=== PATIENT | female | born 1995 | race Caucasian/White ===

== ENCOUNTER 2017-05-20 10:33 | Outpatient (CLI) | payer MEDICAID, OTHER ==
[~2017-05-20] VITALS: Ht 172.7 cm; Wt 78.6 kg
[2017-05-20 11:12] VITALS: BP 114/67; PULSE 64; RESP 17; Ht 172.7 cm; Wt 78.6 kg
--- NOTE | 2017-05-20 11:15 | RADRPT ---
PROCEDURE: US OB biophysical profile. CLINICAL INDICATION: Biophysical profile TECHNIQUE: Multiple sonographic images of the pelvis were obtained. The images were reviewed on a PACS workstation. COMPARISON: None FINDINGS: There is a single live intrauterine , in cephalic presentation. A normal heart rate i s identified measuring 131 beats per minute. The amniotic fluid index is within normal limits measur ing 9.4 cm. The placenta is located posteriorly grade 2-3. Biophysical profile: movement 2/2 tone 2/2. breathing 2/2 RAVINDRA 2/2 Total 02/12 IMPRESSION: 1. Biophysical profile score of 88. 2. Single live intrauterine in cephalic presentation with normal heart rate of 131 b pm. 3. Normal amniotic fluid index of 9.4 cm. RPTAT: AARR Physician Edda Date Time Electronically viewed and signed by Physician Edda on 05/20/2017 11:15 PORFIRIO/
--- NOTE | 2017-05-20 11:20 | RADRPT ---
PROCEDURE: US OB. CLINICAL INDICATION: Size and dates TECHNIQUE: Multiple sonographic images of the pelvis and gravid uterus were obtained. The images were reviewed on a PACS workstation. COMPARISON: No prior studies are available for comparison. FINDINGS: There is a single viable intrauterine gestation. Cardiac activity is present with 127 beats per min snehal. There is a vertex presentation. The placenta is posterior. There is no evidence for an abruption or placenta previa. Measurements were made in order to determine age. The results are as follows: BPD =9.3 cm HC =34.3 cm AC =34.3 cm FL =7.2 cm Estimated gestational age of approximately 38 weeks and 1 day based on ultrasound measurements. Clinical age: 41 weeks and 0 days. The estimated date of delivery is 06/02/17, based on ultrasound measurements. The EFW = 3376 g, 19.7%, based on LMP age. RPTAT: AA IMPRESSION: Single viable intrauterine gestation of approximately 38 weeks and 1 day based on ultrasound measur ements. .Andrew Yarbrough MD, MD Date Time Electronically viewed and signed by .Andrew Yarbrough MD, on 05/20/2017 11:20 .S/
--- NOTE | 2017-05-20 13:05 | PN ---
Triage Information Date/Time Reason for visit: Weeks of Gestation 41 weeks /Para Objective Vital Signs Date Time Temp Pulse Resp B/P Pulse Ox O2 Delivery O2 Flow Rate FiO2 05/20/17 11:12 98.1 64 17 114/67 Heart Rate Comments reactive Contractions: None Results/Medications Imaging Results BPP 8/8, RAVINDRA 9.4cm, efw 3376g c/w 19.7% Disposition: Discharge Assessment/Plan 21 y/o at 41 weeks, status reassuring -discharge home -f/u with OB by tomorrow for delivery plan -return for NST/RAVINDRA in 2 days, consider induction BRITTA ESCUDERO May 20, 2017 13:05
--- NOTE | 2017-05-20 13:54 | TRIAGE ---
OB Triage Datetime Report Generated by CPN: 05/20/2017 13:53 Datetime: 05/20/2017 12:03 Labor Evaluation Frequency: irreg Monitor Mode: External Duration (sec)2399: 50-80 Quality: Mild Pattern: Normal: <= 5 Contractions in 10 Minutes Resting Tone [place]: Relaxed Heart Rate FHR Baseline Rate: 125 Monitor Mode: External US Variability: Moderate 6-25 bpm Accelerations: 15X15 Decelerations: None Category: Category I Comments: reactive nst Pain Assessment Pain Presence: None/Denies Pain Type: N/A Datetime: 05/20/2017 11:18 Assessment Type: Triage Maternal Assessment Level of Consciousness: Fully Conscious DTR's/Clonus: DTRs 2+; No Clonus Headache: Denies Blurred Vision: No Respiratory Effort: Unlabored; Regular Rhythm; Equal Expansion Breath Sounds, Left: Clear and Equal Breath Sounds, Right: Clear and Equal Nausea/Vomiting: Denies RUQ Epigastric Pain: Denies Lower Extremities Edema: None Degree: None Upper Extremities Edema: None Degree: None Facial Edema: None Fall Risk Assessment History of Falling: (0) No Secondary Diagnosis: (0) No Ambulatory Aid: (0) Bedrest/Nurse Assist IV Therapy: (0) No Gait: (0) Normal/Bedrest/Immobile Mental Status: (0) Oriented to Own Ability Fall Score: 0 Fall Risk Score Definition: No Risk: No action required Datetime: 05/20/2017 11:16 Time of Arrival: 05/20/2017 10:27 EGA: 41.0 Arrived By: Ambulatory Arrived From: Home Chief Complaint: Pt. came to hospital for check up, deny uc, deny vag. bleeding, deny sro m Movement: Present Contractions: Denies/Absent Rupture of Membranes: Denies Vaginal Bleeding: None Vaginal Discharge: Denies Recent Sexual Intercouse: Denies Abdominal Trauma: Not Applicable Patient Complaints: None Time Provider Notified: 05/20/2017 10:30 Provider Notified: Initial Plan: nst, u/s for bpp, efw
== END 2017-05-20 12:22 | disposition home or self-care (01) ==
LOC: OBT 10:33 → L-D 10:33 → OBT 12:22
PROVIDERS: ATTEND Obstetrics & Gynecology
DX: O26.893 Other specified pregnancy related conditions, third trimester (principal); Z3A.41 41 weeks gestation of pregnancy
CPT/HCPCS: 76815; 76818; Z7500; G0463